=== PATIENT | female | born 1955 | race Caucasian/White ===

== ENCOUNTER 2016-05-02 09:34 | Day surgery (SDC) ==
[2016-05-02] MEDS ORDERED: LIDOCAINE 1% 20 ML MDV ID ONE (10:20)
[2016-05-02] MEDS ORDERED: VERSED ONE (11:20)
[2016-05-02] MEDS ORDERED: DIPRIVAN 20 ML VIAL IVP ONE (11:20)
[2016-05-02 12:37] VITALS: BP 114/75; TEMP 97.8
--- NOTE | 2016-05-03 09:54 | OP ---
INDICATIONS FOR PROCEDURE: 60-year-old female presents for screening colonoscopy exam. Incidentally she had a change of bowel habits with diarrhea but she tells me that has subsided over the last couple of weeks. MEDICATIONS: SEE ANESTHESIA NOTES. PROCEDURE: COLONOSCOPY. REPORT: The risks, benefits, alternatives and limitations were discussed in detail with the patient. Informed consent was obtained. After adequate sedation was achieved, a digital rectal exam revealed good tone, no masses. The colonoscope was introduced into the rectum and advanced under direct visual guidance to the cecum. The cecum was identified by the appendiceal orifice and IC valve. I then slowly withdrew the scope in a circumferential manner examining the mucosa quite carefully. I looked on the proximal and distal side of folds and flexures as best as possible. I was able to retroflex the scope in the right colon and left colon to increase visualization. The colonic mucosa was unremarkable its entire length other than several small mouth diverticula scattered throughout the sigmoid. No other abnormalities were noted including on retroflex view of the anal canal. The prep was good. The withdrawal time was 8 minutes and 27 seconds. The patient tolerated the procedure well with stable vital signs and pulse oximetry throughout. IMPRESSION: 1. DIVERTICULOSIS RECOMMENDATIONS: 1. High fiber diet. 2. I did suggest a daily probiotic for a month to see if this would help with her bowel habits. 3. Colon screening examination again in 10 years, sooner if there are any signs or symptoms to indicate otherwise. 4. Will see her back in the office as needed since she is clinically well at this point. CC: DR. PERCY HEARD
== END 2016-05-02 12:54 | disposition home or self-care (01) ==
LOC: SURG 09:34
PROVIDERS: ATTEND Internal Medicine Gastroenterology
DX: Z12.11 Encounter for screening for malignant neoplasm of colon (principal); K57.30 Diverticulosis of large intestine without perforation or abscess without bleeding

== ENCOUNTER 2018-12-04 13:00 | Outpatient (RCR) ==
--- NOTE | 2018-11-29 14:39 | RS.OPPTDN ---
Subjective Date of Note: 11/29/18 Visit #: 11 Number of visits approved by Insurance: na Date of Evaluation: 11/07/18 Payer Source: Insurance Treatment Diagnosis: cervical pain radicular pain into L UE, L shld pain Current Subjective/complaints:: Patient reports the cervical motionnis better , and the L UE is slowly feeling stronger. *Precautions: n/a Pain Assessment - Pain Description Pain Location: cervical Pain Description: Dull, Aching Pain Description: 07/07 - Heat/Cryotherapy Treatment: Hot Pack (20 mins. prior to manual therapy) Interventions - Exercise/Activities/Manual Therapy Exercises/Activities: 5 mins. only to assess cervical ROM. Total minutes of Exercise: 5 Manual Therapy: 30 mins soft tissue mobilization B upper traps, cervical area Total minutes of Manual Therapy: 30 HOME EXERCISE PROGRAM: pt given written HEP including chin tucks, AAROM L shld on table, upper trap stretch - Objective Findings Observations,measurements,etc.: AROM,cervical rotation is 65 degrees bilaterally ,lateral flexion is 40 degrees bilaterally. - Charges Timed Code Treatment Minutes: 50 Total Treatment Time: 55 Procedures billed for this date of service:: hp,manual therapy Assessment: Patient progressing well,has less intensity of cervical pain, increased ROM actively,no radiculopathy present.She is very attentive and motivated to improve and return to PLOF. Patient Education: Body/Joint mechanics, Home Exercise Program Patient demonstrates compliance with HEP?: Yes Short Term Goals Goal #1: Independent with initial HEP Goal to be met by: 11/28/18 Progress towards Goal:: Met Goal #2: Decrease pain cervical spine < 5/10 Goal to be met by: 11/28/18 (2.5 - 3 today) Progress towards Goal:: Met Goal #3: Improve cervical ROM WFL's Goal to be met by: 11/28/18 Progress towards Goal:: Met Goal to be met by: 11/25/15 Snf Goals Goal #1: pt with no reports of radicular symptoms LUE Goal to be met by: 12/19/18 Progress towards goal: Progressing Goal #2: Improve L shld flex 130 abd 110 Goal to be met by: 12/19/18 Progress towards goal: Met Goal #3: pt report increased ability to perform normal daily activities w less pain Goal to be met by: 12/19/18 Progress towards goal: Progressing Goal #4: pt able to sleep > 4 hours without interruption from pain Goal to be met by: 12/19/18 Progress towards goal: Met Plan Dates of Location Director Goals: 12/19/18 Expiration date of current Insurance Approval:: na PLAN: Cont. skilled PT to maximize strength and motion in cervical area,pain free ROM.
--- NOTE | 2018-12-02 14:02 | RS.OPPTDN ---
Subjective Date of Note: 12/02/18 Visit #: 12 Number of visits approved by Insurance: na Date of Evaluation: 11/07/18 Payer Source: Insurance Treatment Diagnosis: cervical pain radicular pain into L UE, L shld pain Current Subjective/complaints:: Pleased with he rprogress.She does reportthe cervical symptoms do occasionally wake her up. *Precautions: n/a Pain Assessment - Pain Description Pain Location: cervical/ L UE Pain Description: Dull, Aching Current Pain Intensity: 2/10 - Heat/Cryotherapy Treatment: Hot Pack (20 mins. prior to manual therapy.) Interventions - Exercise/Activities/Manual Therapy Exercises/Activities: Independent with HEP. Total minutes of Exercise: 0 Manual Therapy: 30 mins soft tissue mobilization B upper traps, cervical area Total minutes of Manual Therapy: 30 HOME EXERCISE PROGRAM: pt given written HEP including chin tucks, AAROM L shld on table, upper trap stretch - Charges Timed Code Treatment Minutes: 30 Total Treatment Time: 50 Procedures billed for this date of service:: hp,manual therapy Assessment: Patient progressing well,has functional cervical ROM ,less intensity and frequency of symptoms . She is attentive and compliant to recommendations of the therapy staff. Patient Education: Body/Joint mechanics, Education of Plan of Care Patient demonstrates compliance with HEP?: Yes Short Term Goals Goal #1: Independent with initial HEP Goal to be met by: 11/28/18 Progress towards Goal:: Met Goal #2: Decrease pain cervical spine < 5/10 Goal to be met by: 11/28/18 (2.5 - 3 today) Progress towards Goal:: Met Goal #3: Improve cervical ROM WFL's Goal to be met by: 11/28/18 Progress towards Goal:: Met Goal to be met by: 11/25/15 Fdc Goals Goal #1: pt with no reports of radicular symptoms LUE Goal to be met by: 12/19/18 Progress towards goal: Progressing Goal #2: Improve L shld flex 130 abd 110 Goal to be met by: 12/19/18 Progress towards goal: Met Goal #3: pt report increased ability to perform normal daily activities w less pain Goal to be met by: 12/19/18 Progress towards goal: Progressing Goal #4: pt able to sleep > 4 hours without interruption from pain Goal to be met by: 12/19/18 Progress towards goal: Met Plan Dates of Director Medicare Sales Goals: 12/19/18 Expiration date of current Insurance Approval:: 12/19/18 PLAN: Cont. skilled PT one more session due to good progress,initiate D/C paln.
--- NOTE | 2018-12-04 15:27 | RS.OPPTDN ---
Subjective Date of Note: 12/04/18 Visit #: 13 Number of visits approved by Insurance: na Date of Evaluation: 11/07/18 Payer Source: Insurance Treatment Diagnosis: cervical pain radicular pain into L UE, L shld pain Current Subjective/complaints:: Patient reportsd mild headache today ,but otherwise is pleased with her progress from taking the PT>She agrees with D/C plan today due to good progress. *Precautions: n/a Pain Assessment - Pain Description Pain Location: cervical Pain Description: Dull, Aching Current Pain Intensity: not rated - Heat/Cryotherapy Treatment: Hot Pack (20 mins. prior to manual therapy) Interventions - Exercise/Activities/Manual Therapy Exercises/Activities: Independent with HEP. Total minutes of Exercise: 0 Manual Therapy: 30 mins soft tissue mobilization B upper traps, cervical area HOME EXERCISE PROGRAM: pt given written HEP including chin tucks, AAROM L shld on table, upper trap stretch - Charges Timed Code Treatment Minutes: 30 Total Treatment Time: 50 Procedures billed for this date of service:: hp,manual therapy 2 Assessment: Patient met rehab goals ,has good understanding of HEP.the cervical motion is WFL,minimal pain with ADL's.The L UE ROM is WNL,does fatigue easily , but the exercises osiris improve the strength.She is aware of D/C plan today. Patient Education: Home Exercise Program, Education of Plan of Care Patient demonstrates compliance with HEP?: Yes Short Term Goals Goal #1: Independent with initial HEP Goal to be met by: 11/28/18 Progress towards Goal:: Met Goal #2: Decrease pain cervical spine < 5/10 Goal to be met by: 11/28/18 (2.5 - 3 today) Progress towards Goal:: Met Goal #3: Improve cervical ROM WFL's Goal to be met by: 11/28/18 Progress towards Goal:: Met Goal to be met by: 11/25/15 Mail Distributor Goals Goal #1: pt with no reports of radicular symptoms LUE Goal to be met by: 12/19/18 Progress towards goal: Met Goal #2: Improve L shld flex 130 abd 110 Goal to be met by: 12/19/18 Progress towards goal: Met Goal #3: pt report increased ability to perform normal daily activities w less pain Goal to be met by: 12/19/18 Progress towards goal: Met Goal #4: pt able to sleep > 4 hours without interruption from pain Goal to be met by: 12/19/18 Progress towards goal: Met Plan Dates of Mail Distributor Goals: 12/19/18 Expiration date of current Insurance Approval:: 12/19/18 PLAN: D/C due to goals met.
--- NOTE | 2018-12-04 15:27 | RS.QUICKDC ---
Discharge from PT Date of Discharge: 12/04/18 Number of Visits: 13 Reason for Discharge: Goals met.
== END 2018-12-28 23:59 ==
PROVIDERS: ATTEND Neurological Surgery
DX: M50.20 Other cervical disc displacement, unspecified cervical region (principal); M54.12 Radiculopathy, cervical region; M54.2 Cervicalgia; M79.602 Pain in left arm